=== PATIENT | male | born 1955 | race Caucasian/White ===

== ENCOUNTER 2018-08-19 08:37 | Day surgery (SDC) | payer OTHER ==
[2018-08-19] MEDS ORDERED: FENTAnyl 50 MCG/ML VIAL (09:36)
[2018-08-19] MEDS ORDERED: PROPOFOL 20 ML ×2 (09:36→10:10)
[2018-08-19] MEDS ORDERED: ONDANSETRON 4 MG INJ IV (10:30)
== END 2018-08-19 12:01 | disposition home or self-care (01) ==
LOC: GIL 08:37
DX: Z12.11 Encounter for screening for malignant neoplasm of colon (principal); D12.3 Benign neoplasm of transverse colon; K64.8 Other hemorrhoids; K44.9 Diaphragmatic hernia without obstruction or gangrene; K21.0 Gastro-esophageal reflux disease with esophagitis; E11.9 Type 2 diabetes mellitus without complications; I12.9 Hypertensive chronic kidney disease with stage 1 through stage 4 chronic kidney disease, or unspecified chronic kidney disease; N18.9 Chronic kidney disease, unspecified
CPT/HCPCS: 43239; 82962; 88305